=== PATIENT | female | born 1995 | race Two or more races ===

== ENCOUNTER 2023-06-30 17:41 | Emergency (ER) | payer OTHER ==
[~2023-06-30] VITALS: Ht 157.5 cm; Wt 79.8 kg
[2023-06-30 22:04] LABS: HEMOGLOBIN 11.9 g/dL (12.0-15.00); MEAN CELL VOLUME 75.9 fL (80.00-100.00); MEAN CORPUSCULAR HEMOGLOBIN 25.7 pg (27.00-32.0); MEAN CORPUSCULAR HGB CONC 33.9 g/dl (32.0-36.0); PLATELET COUNT 277 K/uL (150-450); RED BLOOD COUNT 4.61 M/uL (4.00-6.00); RED CELL DISTRIBUTION WIDTH 15.2 % (11.5-14.5)
[2023-06-30 22:36] LABS: URINE APPEARANCE Cloudy; URINE BILIRRUBIN Small (NEGATIVE); URINE BLOOD Large; URINE COLOR Dark Yellow; URINE GLUCOSE Negative (NEGATIVE); URINE LEUKOCYTE Small; URINE NITRATE Negative
[2023-06-30 22:40] LABS: URINE EPITHELIAL CELLS 137.1 uL (0.0-38.8); URINE RBC 219.8 uL (0.0-20.8); URINE WBC 116.2 uL (0.0-23.2)
[2023-06-30 22:54] LABS: URINE PROTEIN 100 (NEGATIVE)
[2023-06-30 23:07] LABS: CALCIUM 7.8 mg/dL (8.5-10.1); CREATININE SERUM 0.39 mg/dL (0.55-1.02); GFR 198.66; POTASSIUM 3.27 mEq/L (3.5-5.1)
== END 2023-07-01 01:21 | disposition home or self-care (01) ==
LOC: ER 17:41
PROVIDERS: Emergency Medicine
DX: O21.9 Vomiting of pregnancy, unspecified (principal); O23.41 Unspecified infection of urinary tract in pregnancy, first trimester; N39.0 Urinary tract infection, site not specified; Z3A.11 11 weeks gestation of pregnancy

== ENCOUNTER 2023-07-23 12:24 | Outpatient (CLI) | payer OTHER | END 2023-07-23 12:48 | disposition home or self-care (01) | LOC: PRENATAL 12:24 | PROVIDERS: ATTEND Obstetrics & Gynecology Maternal & Fetal Medicine | DX: O36.80X0 Pregnancy with inconclusive fetal viability, not applicable or unspecified (principal); Z36.82 Encounter for antenatal screening for nuchal translucency; O24.419 Gestational diabetes mellitus in pregnancy, unspecified control; O34.219 Maternal care for unspecified type scar from previous cesarean delivery; Z36.9 Encounter for antenatal screening, unspecified; Z14.8 Genetic carrier of other disease; Z3A.14 14 weeks gestation of pregnancy ==

== ENCOUNTER 2023-09-03 11:20 | Outpatient (CLI) | payer OTHER | END 2023-09-03 11:21 | disposition home or self-care (01) | LOC: PRENATAL 11:20 | PROVIDERS: ATTEND Obstetrics & Gynecology Maternal & Fetal Medicine | DX: O35.3XX0 Maternal care for (suspected) damage to fetus from viral disease in mother, not applicable or unspecified (principal); O44.00 Complete placenta previa NOS or without hemorrhage, unspecified trimester; O24.419 Gestational diabetes mellitus in pregnancy, unspecified control; O34.219 Maternal care for unspecified type scar from previous cesarean delivery; Z3A.20 20 weeks gestation of pregnancy ==

== ENCOUNTER 2023-10-01 10:14 | Outpatient (CLI) | payer OTHER | END 2023-10-01 10:15 | disposition home or self-care (01) | LOC: PRENATAL 10:14 | PROVIDERS: ATTEND Obstetrics & Gynecology Maternal & Fetal Medicine | DX: O26.849 Uterine size-date discrepancy, unspecified trimester (principal); O24.419 Gestational diabetes mellitus in pregnancy, unspecified control; Z3A.24 24 weeks gestation of pregnancy ==

== ENCOUNTER 2023-10-29 13:48 | Outpatient (CLI) | payer OTHER | END 2023-10-29 13:49 | disposition home or self-care (01) | LOC: PRENATAL 13:48 | PROVIDERS: ATTEND Obstetrics & Gynecology Maternal & Fetal Medicine | DX: O26.849 Uterine size-date discrepancy, unspecified trimester (principal); O24.419 Gestational diabetes mellitus in pregnancy, unspecified control; O40.1XX0 Polyhydramnios, first trimester, not applicable or unspecified; Z3A.28 28 weeks gestation of pregnancy ==